=== PATIENT | male | born 1965 | race Two or more races ===

== ENCOUNTER → 2017-04-09 | Outpatient (CLI) | payer OTHER ==
[~2017-04-09] MED LIST: DEPAKOTE ER500 MG; FOLIC ACID1 MG; HUMULIN 70/30 PE3 ML; NEURONTIN300 MG; RENVELA800 MG; ZANTAC300 MG; ZOCOR40 MG
== END | disposition home or self-care (01) ==
LOC: WOUND MED 08:03
DX: E10.621 Type 1 diabetes mellitus with foot ulcer (principal); L97.523 Non-pressure chronic ulcer of other part of left foot with necrosis of muscle
CPT/HCPCS: 11042; 11045; A4554; A4930; A6212; A6216; A6266

== ENCOUNTER → 2017-04-22 | Outpatient (CLI) | payer OTHER | END | disposition home or self-care (01) | LOC: WOUND MED 09:52 | DX: E10.621 Type 1 diabetes mellitus with foot ulcer (principal); L97.523 Non-pressure chronic ulcer of other part of left foot with necrosis of muscle | CPT/HCPCS: 11042; 11045; A4554; A4930; A6212; A6216; A6266 ==

== ENCOUNTER → 2017-05-03 | Outpatient (CLI) | payer OTHER | END | disposition home or self-care (01) | LOC: WOUND MED 09:31 | DX: E10.621 Type 1 diabetes mellitus with foot ulcer (principal); L97.523 Non-pressure chronic ulcer of other part of left foot with necrosis of muscle | CPT/HCPCS: 11042; 11045; A4554; A4930; A6212; A6216; A6219 ==

== ENCOUNTER → 2017-05-13 | Outpatient (CLI) | payer OTHER | END | disposition home or self-care (01) | LOC: WOUND MED 09:49 | DX: E10.621 Type 1 diabetes mellitus with foot ulcer (principal); L97.523 Non-pressure chronic ulcer of other part of left foot with necrosis of muscle | CPT/HCPCS: 11042; A4554; A4930; A6212; A6216 ==

== ENCOUNTER → 2017-05-20 | Outpatient (CLI) | payer OTHER | END | disposition home or self-care (01) | LOC: WOUND MED 09:37 | DX: E10.621 Type 1 diabetes mellitus with foot ulcer (principal); L97.523 Non-pressure chronic ulcer of other part of left foot with necrosis of muscle | CPT/HCPCS: 11042; A4554; A4930; A6212; A6216; A6266 ==

== ENCOUNTER → 2017-05-27 | Outpatient (CLI) | payer OTHER | END | disposition home or self-care (01) | LOC: WOUND MED 09:43 | DX: E10.621 Type 1 diabetes mellitus with foot ulcer (principal); L97.523 Non-pressure chronic ulcer of other part of left foot with necrosis of muscle | CPT/HCPCS: 11042; A4554; A4930; A6212; A6216; A6220; A6266 ==

== ENCOUNTER → 2017-06-03 | Outpatient (CLI) | payer OTHER | END | disposition home or self-care (01) | LOC: WOUND MED 09:37 | DX: E10.621 Type 1 diabetes mellitus with foot ulcer (principal); L97.523 Non-pressure chronic ulcer of other part of left foot with necrosis of muscle | CPT/HCPCS: 11042; A4554; A4930; A6216; A6220; A6266 ==

== ENCOUNTER → 2017-06-10 | Outpatient (CLI) | payer OTHER | END | disposition home or self-care (01) | LOC: WOUND MED 09:50 | DX: E10.621 Type 1 diabetes mellitus with foot ulcer (principal); L97.523 Non-pressure chronic ulcer of other part of left foot with necrosis of muscle | CPT/HCPCS: 11042; A4554; A4930; A6216; A6219 ==

== ENCOUNTER → 2017-06-17 | Outpatient (CLI) | payer OTHER | END | disposition home or self-care (01) | LOC: WOUND MED 09:22 | DX: E10.621 Type 1 diabetes mellitus with foot ulcer (principal); L97.523 Non-pressure chronic ulcer of other part of left foot with necrosis of muscle | CPT/HCPCS: 11042; A4554; A4930; A6216; A6266 ==

== ENCOUNTER → 2017-07-08 | Outpatient (CLI) | payer OTHER | END | disposition home or self-care (01) | LOC: WOUND MED 09:37 | DX: E10.621 Type 1 diabetes mellitus with foot ulcer (principal); L97.523 Non-pressure chronic ulcer of other part of left foot with necrosis of muscle | CPT/HCPCS: 11042; A4554; A4930; A6212; A6216; A6266 ==

== ENCOUNTER → 2017-07-29 | Outpatient (CLI) | payer OTHER | END | disposition home or self-care (01) | LOC: WOUND MED 09:22 | DX: E10.621 Type 1 diabetes mellitus with foot ulcer (principal); L97.523 Non-pressure chronic ulcer of other part of left foot with necrosis of muscle | CPT/HCPCS: 11042; A4554; A4930; A6212; A6216; A6266 ==

== ENCOUNTER → 2017-08-19 | Outpatient (CLI) | payer OTHER | END | disposition home or self-care (01) | LOC: WOUND MED 09:28 | DX: E10.621 Type 1 diabetes mellitus with foot ulcer (principal); L97.523 Non-pressure chronic ulcer of other part of left foot with necrosis of muscle | CPT/HCPCS: 11042; A4554; A4930; A6212; A6216 ==